=== PATIENT | female | born 1950 | race Caucasian/White ===

== ENCOUNTER → 2022-10-24 07:39 | Outpatient (CLI) | payer MEDICARE, OTHER, SELFPAY ==
[2022-10-24 08:27] LABS: Hematocrit 42.2 % (36-46); Hemoglobin 14.3 g/dL (12.0-16.0); Mean Corpuscular HGB Conc 33.9 % (30-36); Mean Corpuscular Hemoglobin 31.5 PG (26-34); Mean Corpuscular Volume 92.8 fL (80-100); Platelet Count 267 X10^3/uL (150-400); Red Blood Cell Count 4.55 X10^6/uL (4.0-5.2); Red Cell Distribution Width 13.6 % (11.6-14.8); White Blood Cell Count 5.3 X10^3/uL (4.5-11.0)
[2022-10-24 09:03] LABS: Alanine Aminotransferase 21 IU/L (<35); Albumin 4.5 g/dL (3.5-5.0); Albumin Globulin Ratio 1.5 (1.0-2.8); Alkaline Phosphatase 89 U/L (38-126); Aspartate Aminotransferase 27 IU/L (14-36); Bilirubin Total 0.6 mg/dL (0.2-1.3); Blood Urea Nitrogen 13 mg/dL (7-17); Calcium 9.1 mg/dL (8.4-10.2); Carbon Dioxide 24 mmol/L (22-32); Chloride 104 mmol/L (98-107); Cholesterol 232 mg/dL (140-199); Estimated Glomerular Filt Rate > 60 mL/min (>60); Globulin 3.1 g/dL (1.7-4.1); Glucose 104 mg/dL (80-110); HDL Cholesterol 81 mg/dL (40-60); HEMOLYSIS < 15 (0-50); LDL Cholesterol Calculated 138 mg/dL (<100); Potassium 4.2 mmol/L (3.4-5.1); Sodium 139 mmol/L (137-145); Total Protein 7.6 g/dL (6.3-8.2); Triglycerides 63 mg/dL (35-150)
[2022-10-24 09:11] LABS: Vitamin D 25 Hydroxy (D3) 46.3 ng/mL (30.0-100.0)
[2022-10-24 09:22] LABS: TSH w/ Reflex to FT4 1.04 uIU/mL (0.47-4.68)
[2022-10-25 07:45] LABS: Varicella IgG Antibody 2510 index (Immune >165)
== END ==
PROVIDERS: PCP Internal Medicine; Referring Provider Internal Medicine; Visit Provider Internal Medicine
DX: E55.9 Vitamin D deficiency, unspecified (principal); E78.2 Mixed hyperlipidemia; F41.1 Generalized anxiety disorder; M85.80 Other specified disorders of bone density and structure, unspecified site; Z20.9 Contact with and (suspected) exposure to unspecified communicable disease
CPT/HCPCS: 36415; 80053; 80061; 82306; 84443; 85027; 86787

== ENCOUNTER 2023-11-03 06:28 | Day surgery (SDC) | payer MEDICARE, SELFPAY ==
--- NOTE | 2023-11-02 17:18 | PM.PREOP ---
Pre-operative Note COVID-19 COVID-19 status: Not tested Interval Note History & Physical reviewed/Exam performed by Physician: Yes Changes to H&P: No
--- NOTE | 2023-11-02 17:18 | PM.OP.1 ---
Operative Date/Time/Diagnoses Date of procedure: 11/03/23 Time of procedure: 07:45 Procedure & Clinicians Procedure: Preoperative diagnosis: 1. Bilateral ectropion 2. Nasolacrimal duct obstruction. 3. Inferior herniated fat pads Postoperative diagnosis: Status post ectropion repair with horizontal lid shortening and punctal surgery. 3. Anesthesia local with monitored standby. 4. Blood loss: Less than 3 cc 5. Specimen: None Operative summary: Patient presents with excessive irritation and tearing from exposure due to bilateral lower lid laxity malposition the of the lacrimal puncta which were also closed. The patient has failed conservative measures including lubrication and antibiotic ointment and desires surgery to improve these symptoms. The patient is taken to the operating room and positioned. Monitoring is performed. Local anesthetic consisting 1% xylocaine mixed with BSS and 1 cc of hyulronidase is placed through the inferior lid both medial inferior and laterally. To have cc is given to each lid. This is then supplemented with 2% xylocaine with epinephrine mixed half and half with 0.5% Marcaine with 1 cc of hyulronidase for pain relief and hemostasis. Good anesthesia was obtained. Attention was placed to the right lower lid. A punctal dilator was used to enlarge the punctum. It was then probed to the nose. Tenotomy scissors were used to make a 3 snip procedure to enlarge the punctum permanently. A spindle procedure using 6 0 Vicryl was placed through an incision made 8 mm below the punctum the lower lid retractors were exposed and cauterized. The double-arm suture was then placed through and through the lid and externalized and closed on the external surface. Attention was placed to the lateral canthus. A 15. Bard-Nasir blade was used to make an incision for 1 cm. The periosteum was exposed. Cautery was used as needed. The inferior canthal tendon was lysed with scissors. A tarsal strip was formed with clearance of the anterior and posterior lamella and any exposed lashes. Minimal shortening was performed. The strip was then transected with 5.0 Mersilene type suture which was placed double-armed through the periosteum and tied with multiple knots at the orbital rim. The outer tarsus and lid was then closed with 6 0 interrupted sutures. The procedure was repeated on the left side in identical fashion. There was minimal bleeding. Separate at on procedure of herniated fat pad removal. The patient has cosmetically unacceptable herniated fat pad inferiorly which she would like to be addressed while she is in the operating room. She understands this is a cosmetic surgery. She has no contraindication to proceeding and any extra laxity has been addressed in the procedure above. Indelible ink saab were placed over all 3 fat pads in the preoperative holding area. The procedure was explained to the patient and she wished to proceed. She was already in the operating room for ectropion repair. Additional anesthetic was placed in the lower lids. A subciliary incision was made 2 mm under the lashes for the full amount starting 4 mm lateral to the punctum. Blunt dissection was then used to expose the orbital septum. Buttonholes were placed through each fat pad and they were removed sequentially. Hemostasis was performed using a hemostat and the extra fat was resected. The wound was explored for bleeders. The conjunctiva was then closed by placing it back in position without suture. The external lid had 1 mm of skin tissue removed and then a running 6.0 Vicryl inferior suture placed. Maxitrol ointment was placed.. The patient returned to the recovery room in good condition. Sutures will be removed in the office in approximately 10 days. Same procedure as scheduled: Yes Operative Notes Estimated Blood Loss (mL): 2
[2023-11-03 06:43] VITALS: BMI 21.7
[2023-11-03 06:56] VITALS: BP 163/80; PULSE 80; RESP 17; TEMP 36.3; O2SAT 98
[2023-11-03] MEDS: LACTATED RINGERS 1,000 ML 42 ML IV (07:06)
[2023-11-03] MEDS: LIDOCAINE 2% W/EPI 3 ML, BUPIVACAINE 0.5% (PF) 2 ML, HYALURONIDASE 150 UNIT INJ (08:39)
[2023-11-03] MEDS: PROPARACAINE 0.5% OPHTH SOL 2 DROPS EYE-BOTH (09:00)
[2023-11-03] MEDS: NEOMYCIN/POLY/DEX OPHTH OINT 1 APPLIC EYE-BOTH (09:53)
[2023-11-03 09:57] VITALS: BP 98/59; PULSE 82; RESP 16; TEMP 36.7; O2SAT 96
[2023-11-03 10:02] VITALS: BP 113/55; PULSE 82; RESP 14; O2SAT 98
[2023-11-03 10:07] VITALS: BP 106/76; PULSE 72; RESP 12; O2SAT 99
[2023-11-03 10:14] VITALS: BP 122/67; PULSE 68; RESP 17; O2SAT 100
== END 2023-11-03 10:40 | disposition home or self-care (01) ==
PROVIDERS: PCP Internal Medicine; Referring Provider Ophthalmology; Visit Provider Ophthalmology
PROC: (CPT 67924; principal; 2023-11-03 07:45)
DX: H02.105 Unspecified ectropion of left lower eyelid (principal); H02.102 Unspecified ectropion of right lower eyelid
CPT/HCPCS: 67924; J1100; J2250; J2405; J2704; J3010; J3470

== ENCOUNTER → 2024-03-28 09:01 | Outpatient (CLI) | payer MEDICARE, SELFPAY ==
[2024-03-28 13:19] LABS: BUN Creatinine Ratio 18.8 (6-22); Blood Urea Nitrogen 13 mg/dL (7-17); Calcium 9.3 mg/dL (8.4-10.2); Carbon Dioxide 23 mmol/L (22-32); Chloride 106 mmol/L (98-107); Cholesterol 237 mg/dL (140-199); Estimated Glomerular Filt Rate > 60 mL/min (>60); Glucose 104 mg/dL (80-110); HDL Cholesterol 82 mg/dL (40-60); HEMOLYSIS < 15 (0-50); LDL Cholesterol Calculated 142 mg/dL (<100); Potassium 5.3 mmol/L (3.4-5.1); Sodium 137 mmol/L (137-145); Triglycerides 66 mg/dL (35-150)
== END ==
PROVIDERS: PCP Internal Medicine; Referring Provider Internal Medicine; Visit Provider Internal Medicine
DX: E78.2 Mixed hyperlipidemia (principal); I87.2 Venous insufficiency (chronic) (peripheral)
CPT/HCPCS: 36415; 80048; 80061

== ENCOUNTER → 2025-06-19 08:22 | Outpatient (CLI) | payer MEDICARE, SELFPAY ==
[2025-06-19 09:30] LABS: Blood Urea Nitrogen 16 mg/dL (7-17); Calcium 9.8 mg/dL (8.4-10.2); Carbon Dioxide 25 mmol/L (22-32); Chloride 105 mmol/L (98-107); Cholesterol 260 mg/dL (140-199); Estimated Glomerular Filt Rate > 60 mL/min (>60); Glucose 107 mg/dL (70-99); HDL Cholesterol 92 mg/dL (40-60); HEMOLYSIS < 15 (0-50); Potassium 4.7 mmol/L (3.4-5.1); Sodium 139 mmol/L (137-145); Triglycerides 78 mg/dL (35-150)
== END ==
PROVIDERS: PCP Internal Medicine; Referring Provider Internal Medicine; Visit Provider Internal Medicine
DX: E78.2 Mixed hyperlipidemia (principal)
CPT/HCPCS: 36415; 80048; 80061; 84450